=== PATIENT | male | born 1970 ===

== ENCOUNTER 2020-12-04 13:53 | Emergency (ER) | payer OTHER ==
[~2020-12-04] VITALS: Ht 175.3 cm; Wt 83.7 kg
--- NOTE | 2020-12-04 14:14 | NUR ---
PT W/ FOSS PAIN X 2 DAYS, ALSO C/O NON-RPOD COUGH, FEVER, CHILLS. STATES WAS COVID TESTED 12/03 BUT HAS NOT REC'D RESULTS. +NAUSEA, AND STATES THAT FOSS PAIN INCREASES WITH LOUD NOISES. VSS, PROVIDER EVAL PENDING. PT IS [place] SPEAKING ONLY, HAS ADULT DAUGHTER AT BEDSIDE AND REQUESTS FOR HER TO INTERPRET. CALL LIGHT W/I REACH
[2020-12-04] MEDS ORDERED: KETOROLAC 30 MG/1 ML ONE (15:16)
[2020-12-04] MEDS ORDERED: DIPHENHYDRAMINE 50 MG/ML, 1ML ONE (15:16)
[2020-12-04] MEDS ORDERED: METOCLOPRAMIDE 5 MG/ML, 2ML ONE (15:16)
--- NOTE | 2020-12-04 15:29 | NUR ---
PIV EST AND PT MED NOTED. IVF INFUSING W/O DIFFICULTY. PT TO CT WITH TECH TRANSPORT. PTS DAUGHTER WITH PT TO PROVIDE TRANSLATION.
[2020-12-04] MEDS ORDERED: DIPHENHYDRAMINE 50 MG/ML, 1ML IVPush ONE (15:30)
[2020-12-04] MEDS ORDERED: METOCLOPRAMIDE 5 MG/ML, 2ML IVPush ONE (15:30)
[2020-12-04] MEDS ORDERED: KETOROLAC 30 MG/1 ML IVPush ONE (15:30)
[2020-12-04] MEDS ORDERED: SODIUM CHLORIDE 0.9% 1,000ML IVBOLUS ONE (15:30)
--- NOTE | 2020-12-04 15:37 | NUR ---
PT RTD FROM CT. VSS NOTED, CALL LIGHT W/I REACH
[2020-12-04 16:00] VITALS: BP 116/74
--- NOTE | 2020-12-04 16:05 | NUR ---
ALL TESTS RESULTED. IVF COMPLETED AND PT STATES FOSS PAIN IS IMPROVING. PAIN NOW 6. CHART UP FOR RECHECK. PT AWARE
--- NOTE | 2020-12-04 17:05 | NUR ---
Patient/Caregiver given discharge instructions and they have confirmed that they understand the instructions. Patient ambulatory with steady gait.
== END 2020-12-04 17:07 | disposition home or self-care (01) ==
LOC: ED 15:00
DX: G44.209 Tension-type headache, unspecified, not intractable (principal); I10 Essential (primary) hypertension
CPT/HCPCS: 70450; 71045; 96361; 96374; 96375; 99284; J1200; J1885; J2765; J7030

== ENCOUNTER 2021-05-17 07:36 | Outpatient (CLI) | payer OTHER ==
[2021-05-17 08:07] LABS: ALBUMIN 3.8 g/dL (3.4-5.0); ANION GAP 6 mmol/L (5-15); CALCIUM 8.7 mg/dL (8.5-10.1); CHLORIDE 105 mmol/L (98-107)
[2021-05-17 08:12] LABS: ALANINE AMINOTRANSFERASE 33 U/L (12-78); ALKALINE PHOSPHATASE 56 U/L (45-117); BILIRUBIN,TOTAL 0.9 mg/dL (0.2-1.0); CREATININE 0.86 mg/dL (0.7-1.3); TOTAL PROTEIN 7.8 g/dL (6.4-8.2)
== END 2021-05-17 23:59 | disposition home or self-care (01) ==
LOC: LAB 07:36
PROVIDERS: ATTEND Nurse Practitioner Primary Care
DX: I10 Essential (primary) hypertension (principal)
CPT/HCPCS: 36415; 80053